=== PATIENT | male | born 1960 | race Caucasian/White ===

== ENCOUNTER 2017-02-28 13:00 | Outpatient (CLI) | payer OTHER | END 2017-02-28 17:00 | disposition home or self-care (01) | LOC: HPC 13:00 | DX: K40.90 Unilateral inguinal hernia, without obstruction or gangrene, not specified as recurrent (principal); J44.9 Chronic obstructive pulmonary disease, unspecified; E78.5 Hyperlipidemia, unspecified; Z72.0 Tobacco use | CPT/HCPCS: Z7500 ==

== ENCOUNTER 2017-03-19 09:57 | Outpatient (CLI) | payer OTHER | END 2017-03-19 17:00 | disposition home or self-care (01) | LOC: HPC 09:57 | DX: K40.90 Unilateral inguinal hernia, without obstruction or gangrene, not specified as recurrent (principal); K57.90 Diverticulosis of intestine, part unspecified, without perforation or abscess without bleeding; N20.0 Calculus of kidney; N28.1 Cyst of kidney, acquired | CPT/HCPCS: Z7500 ==

== ENCOUNTER 2017-04-02 11:04 | Day surgery (SDC) | payer OTHER ==
[~2017-04-02 11:04] MED LIST: CEFAZOLIN 2 GM/50 ML (PMX) 50 ML IVPB; D5W-0.45 NACL + KCL 20 MEQ 1,000 ML IV
[2017-04-02] MEDS ORDERED: LIDOCAINE 2% (SDV) 5 ML INJ (13:34)
[2017-04-02] MEDS ORDERED: PROPOFOL 20 ML (13:34)
[2017-04-02] MEDS ORDERED: SUCCINYLCHOLINE CHLORIDE 100 MG/5 ML SYG IV (13:34)
[2017-04-02] MEDS ORDERED: MEPERIDINE 100 MG INJ (13:34)
[2017-04-02] MEDS ORDERED: NEOSTIGMINE 3 MG/3 ML SYRINGE ×2 (13:34→14:38)
[2017-04-02] MEDS ORDERED: GLYCOPYRROLATE 0.4 MG INJ ×3 (13:34→14:38)
[2017-04-02] MEDS ORDERED: ROCURONIUM 50 MG INJ ×3 (13:34→14:38)
[2017-04-02] MEDS ORDERED: CEFAZOLIN 1 GM INJ (13:37)
[2017-04-02] MEDS: BUPIVACAINE 0.5%/EPI (SDV) 30 ML INJ (14:33)
[2017-04-02] MEDS ORDERED: EPHEDrine SULFATE 50 MG/5 ML SYG (15:15)
[2017-04-02] MEDS ORDERED: BISACODYL 10 MG SUPP PR (16:00)
[2017-04-02] MEDS ORDERED: DOCUSATE SODIUM 100 MG CAP PO (16:00)
[2017-04-02] MEDS ORDERED: HYDROCODONE/APAP (5/325) TAB PO (16:00)
[2017-04-02] MEDS: FENTAnyl 50 MCG/ML VIAL IV ×3 (16:18→16:43)
[2017-04-02] MEDS: ONDANSETRON 4 MG INJ IV (16:18)
[2017-04-02] MEDS ORDERED: hydrALAzine 20 MG INJ IV (16:30)
[2017-04-02] MEDS ORDERED: METOCLOPRAMIDE 10 MG INJ IV (16:30)
[2017-04-02] MEDS ORDERED: OXYCODONE/ACETAMINOPHEN (5/325) TAB PO ×2 (16:30)
[2017-04-02] MEDS ORDERED: EPHEDrine SULFATE 50 MG/5 ML SYG IV (16:30)
[2017-04-02] MEDS ORDERED: MEPERIDINE 25 MG INJ IV (16:30)
[2017-04-02] MEDS ORDERED: DIPHENHYDRAMINE 50 MG INJ IV (16:30)
[2017-04-02] MEDS ORDERED: MIDAZOLAM 1 MG/ML 2 ML INJ IV (16:30)
[2017-04-02] MEDS ORDERED: HYDROmorphONE (0.2 MG/ML) 10ML SYG IV ×3 (16:30)
[2017-04-02] MEDS ORDERED: FENTAnyl 50 MCG/ML VIAL IV (16:30)
[2017-04-02] MEDS ORDERED: LABETALOL HCL 20MG INJ IV (16:30)
[2017-04-02] MEDS: HYDROCODONE/APAP (5/325) TAB PO (17:27)
== END 2017-04-02 17:40 | disposition home or self-care (01) ==
LOC: SDS 11:04
DX: K40.91 Unilateral inguinal hernia, without obstruction or gangrene, recurrent (principal); J44.9 Chronic obstructive pulmonary disease, unspecified; Z68.32 Body mass index [BMI] 32.0-32.9, adult; E78.5 Hyperlipidemia, unspecified
CPT/HCPCS: 49520

== ENCOUNTER 2017-04-25 11:26 | Outpatient (CLI) | payer OTHER | END 2017-04-25 15:52 | disposition home or self-care (01) | LOC: HPC 11:26 | DX: K40.90 Unilateral inguinal hernia, without obstruction or gangrene, not specified as recurrent (principal); Z98.890 Other specified postprocedural states | CPT/HCPCS: Z7500 ==